=== PATIENT | female | born 1975 | race Hispanic/Latino ===

== ENCOUNTER 2017-10-03 12:09 | Emergency (ER) | payer MEDICAID, OTHER ==
[~2017-10-03 12:09] MED LIST: ACET1TAB12 PO; CIPR-278 PO; GEMF600T3 PO; METF850T2 PO; PRED5TAB PO
[2017-10-03 12:38] LABS: APPEARANCE,URINE Clear (CLEAR); BILIRUBIN,URINE Negative (NEGATIVE); COLOR,URINE Yellow (YELLOW); GLUCOSE, URINE (UA) >=1000 mg/dL (NEGATIVE); KETONES,URINE Negative (NEGATIVE); LEUKOCYTE ESTERASE ,URINE Trace (NEGATIVE); NITRATE,URINE Negative (NEGATIVE); OCCULT BLOOD,URINE Negative (NEGATIVE); PH,URINE 6.5 (5.0-8.0); PROTEIN,URINE Negative (NEGATIVE)
[2017-10-03 12:44] LABS: CREATININE 0.7 mg/dL (0.5-1.5); POTASSIUM 3.7 mmol/L (3.5-5.1)
[2017-10-03 12:48] LABS: AMPHET/METH SCREEN,URINE NEGATIVE (NEGATIVE); BARBITURATE SCREEN, URINE NEGATIVE (NEGATIVE); BASOPHILS % (AUTO) 0.4 % (0.0-5.0); BENZODIAZEPINES SCREEN,URINE NEGATIVE (NEGATIVE); CANNABINOID SCREEN,URINE NEGATIVE (NEGATIVE); COCAINE SCREEN,URINE NEGATIVE (NEGATIVE); EOSINOPHILS % (AUTO) 0.5 % (0.0-8.0); HEMATOCRIT 33.1 % (36-48); LYMPHOCYTES % (AUTO) 21.8 % (21.0-51.0); MEAN CORPUSCULAR HEMOGLOBIN 21.8 pg (27.0-33.0); MEAN CORPUSCULAR HGB CONC 32.1 g/dL (32.0-36.0); MEAN CORPUSCULAR VOLUME 68.1 fL (79-99); MONOCYTES % (AUTO) 5.8 % (3.0-13.0); NEUTROPHILS % (AUTO) 71.5 % (40.0-77.0); NUCLEATED RED BLOOD CELLS 0.1 % (0.0-0.19); OPIATE SCREEN,URINE NEGATIVE (NEGATIVE); PHENCYCLIDINE SCREEN,URINE NEGATIVE (NEGATIVE); PLATELET COUNT (AUTO) 479 K/uL (130-400); RED BLOOD CELL COUNT(AUTO) 4.86 MIL/uL (4.00-5.50); RED CELL DISTRIBUTION WIDTH 18.8 % (11.0-15.5); WHITE BLOOD COUNT (AUTO) 9.7 K/uL (4.8-10.8)
[2017-10-03 12:49] LABS: ALBUMIN 3.5 g/dL (3.5-5.0); BILIRUBIN,TOTAL 0.3 mg/dL (0.2-1.0)
[2017-10-03] MEDS ORDERED: KETOROLAC TROMETHAMINE 30MG/ML ONE (13:17)
[2017-10-03] MEDS ORDERED: INSULIN HUMULIN R 100 UNIT/ML 3ML ONE (13:18)
[2017-10-03 13:23] LABS: BACTERIA,URINE Rare /HPF (None Seen); RBC,URINE None Seen /HPF (0-1); WBC,URINE 0-1 /HPF (0-1)
== END 2017-10-03 15:53 | disposition home or self-care (01) ==
LOC: EDH 12:09
DX: R10.9 Unspecified abdominal pain (principal); E11.9 Type 2 diabetes mellitus without complications; E78.5 Hyperlipidemia, unspecified
CPT/HCPCS: 36415; 74176; 80053; 80305; 81001; 81025; 82948; 85025; 96372 ×2; 99285; J1815; J1885

== ENCOUNTER 2018-06-04 12:58 | Emergency (ER) | payer MEDICAID, OTHER ==
[~2018-06-04 12:58] MED LIST changes: -GEMF600T3 PO; +GEMF600T5 PO; +METF-445 PO; -METF850T2 PO
[2018-06-04 14:08] LABS: BASOPHILS % (AUTO) 0.8 % (0.0-5.0); EOSINOPHILS % (AUTO) 0.6 % (0.0-8.0); HEMATOCRIT 36.2 % (36-48); LYMPHOCYTES % (AUTO) 22.1 % (21.0-51.0); MEAN CORPUSCULAR HEMOGLOBIN 22.1 pg (27.0-33.0); MEAN CORPUSCULAR VOLUME 71.1 fL (79-99); MONOCYTES % (AUTO) 6.5 % (3.0-13.0); NUCLEATED RED BLOOD CELLS 0.1 % (0.0-0.19); PLATELET COUNT (AUTO) 327 K/uL (130-400); RED BLOOD CELL COUNT(AUTO) 5.08 MIL/uL (4.00-5.50); RED CELL DISTRIBUTION WIDTH 18.4 % (11.0-15.5); WHITE BLOOD COUNT (AUTO) 8.3 K/uL (4.8-10.8)
[2018-06-04 14:26] LABS: INR 0.91 (0.85-1.15); PARTIAL THROMBOPLASTIN TIME 26.6 SEC (26.3-35.5); PROTHROMBIN TIME 9.6 SEC (9.6-11.6)
[2018-06-04 14:29] LABS: CREATININE 0.6 mg/dL (0.5-1.5); POTASSIUM 4.1 mmol/L (3.5-5.1)
[2018-06-04 14:34] LABS: ALBUMIN 3.4 g/dL (3.5-5.0); B-TYPE NATRIURETIC PEPTIDE 19 pg/mL (0-100); BILIRUBIN,TOTAL 0.2 mg/dL (0.2-1.0); TOTAL PROTEIN, SERUM 7.1 g/dL (6.0-8.3)
== END 2018-06-04 14:58 | disposition home or self-care (01) ==
LOC: EDH 12:58
DX: R07.89 Other chest pain (principal); M54.2 Cervicalgia; E78.5 Hyperlipidemia, unspecified; E11.9 Type 2 diabetes mellitus without complications; Z90.49 Acquired absence of other specified parts of digestive tract; Z72.0 Tobacco use
CPT/HCPCS: 36415; 71045; 80053; 82550; 83880; 84484; 85025; 85610; 85730; 93005

== ENCOUNTER 2018-12-10 15:06 | Emergency (ER) | payer MEDICAID, OTHER ==
[2018-12-10 15:43] LABS: BASOPHILS % (AUTO) 0.5 % (0.0-5.0); EOSINOPHILS % (AUTO) 0.7 % (0.0-8.0); HEMATOCRIT 36.4 % (36-48); LYMPHOCYTES % (AUTO) 29.8 % (21.0-51.0); MEAN CORPUSCULAR HEMOGLOBIN 23.3 pg (27.0-33.0); MEAN CORPUSCULAR HGB CONC 32.1 g/dL (32.0-36.0); MEAN CORPUSCULAR VOLUME 72.6 fL (79-99); MONOCYTES % (AUTO) 5.7 % (3.0-13.0); NEUTROPHILS % (AUTO) 63.3 % (40.0-77.0); PLATELET COUNT (AUTO) 330 K/uL (130-400); RED BLOOD CELL COUNT(AUTO) 5.02 MIL/uL (4.00-5.50); RED CELL DISTRIBUTION WIDTH 19.5 % (11.0-15.5); WHITE BLOOD COUNT (AUTO) 7.2 K/uL (4.8-10.8)
[2018-12-10 15:52] LABS: CREATININE 0.8 mg/dL (0.5-1.5)
[2018-12-10 15:56] LABS: ALBUMIN 3.4 g/dL (3.5-5.0); BILIRUBIN,TOTAL 0.2 mg/dL (0.2-1.0); TOTAL PROTEIN, SERUM 7.6 g/dL (6.0-8.3)
[2018-12-10 16:33] LABS: APPEARANCE,URINE Clear (CLEAR); BILIRUBIN,URINE Negative (NEGATIVE); COLOR,URINE Yellow (YELLOW); GLUCOSE, URINE (UA) 500 mg/dL (NEGATIVE); KETONES,URINE Negative (NEGATIVE); LEUKOCYTE ESTERASE ,URINE Negative (NEGATIVE); NITRATE,URINE Negative (NEGATIVE); OCCULT BLOOD,URINE Large (NEGATIVE); PROTEIN,URINE Negative (NEGATIVE)
[2018-12-10 16:39] LABS: BACTERIA,URINE Rare /HPF (None Seen); SQUAMOUS EPITHELIAL CELL,UR Few /HPF (0-2); WBC,URINE 0-1 /HPF (0-1)
[2018-12-10 16:40] LABS: AMPHET/METH SCREEN,URINE NEGATIVE (NEGATIVE); BARBITURATE SCREEN, URINE NEGATIVE (NEGATIVE); BENZODIAZEPINES SCREEN,URINE NEGATIVE (NEGATIVE); CANNABINOID SCREEN,URINE NEGATIVE (NEGATIVE); COCAINE SCREEN,URINE NEGATIVE (NEGATIVE); HCG,QUAL RESULT NEGATIVE (NEGATIVE); OPIATE SCREEN,URINE NEGATIVE (NEGATIVE); PHENCYCLIDINE SCREEN,URINE NEGATIVE (NEGATIVE)
[2018-12-10] MEDS ORDERED: ASPIRIN 325 MG TABLET ONE (17:16)
[2018-12-10] MEDS ORDERED: ASPIRIN 81MG TAB.CHEW ONE (17:21)
== END 2018-12-10 18:22 | disposition home or self-care (01) ==
LOC: EDH 15:06
DX: E11.65 Type 2 diabetes mellitus with hyperglycemia (principal); R07.89 Other chest pain; E78.5 Hyperlipidemia, unspecified
CPT/HCPCS: 36415; 71045; 80053; 80305; 81001; 81025; 82550; 83880; 84484; 85025; 93005

== ENCOUNTER 2019-04-08 16:12 | Emergency (ER) | payer OTHER ==
[2019-04-08 16:59] LABS: APPEARANCE,URINE Clear (CLEAR); BILIRUBIN,URINE Negative (NEGATIVE); COLOR,URINE Yellow (YELLOW); GLUCOSE, URINE (UA) 500 mg/dL (NEGATIVE); KETONES,URINE Trace mg/dL (NEGATIVE); LEUKOCYTE ESTERASE ,URINE Negative (NEGATIVE); NITRATE,URINE Negative (NEGATIVE); OCCULT BLOOD,URINE Large (NEGATIVE); PH,URINE 6.5 (5.0-8.0); PROTEIN,URINE Negative (NEGATIVE); UROBILINOGEN,URINE 0.2 mg/dL (0.2-1.0)
[2019-04-08 17:03] LABS: BASOPHILS % (AUTO) 0.9 % (0.0-5.0); EOSINOPHILS % (AUTO) 0.6 % (0.0-8.0); HEMATOCRIT 35.2 % (36-48); LYMPHOCYTES % (AUTO) 26.3 % (21.0-51.0); MEAN CORPUSCULAR HEMOGLOBIN 25.4 pg (27.0-33.0); MONOCYTES % (AUTO) 5.8 % (3.0-13.0); NEUTROPHILS % (AUTO) 66.4 % (40.0-77.0); NUCLEATED RED BLOOD CELLS 0.1 % (0.0-0.19); PLATELET COUNT (AUTO) 369 K/uL (130-400); RED BLOOD CELL COUNT(AUTO) 4.58 MIL/uL (4.00-5.50); RED CELL DISTRIBUTION WIDTH 18.1 % (11.0-15.5); WHITE BLOOD COUNT (AUTO) 8.6 K/uL (4.8-10.8)
[2019-04-08 17:15] LABS: CREATININE 0.8 mg/dL (0.5-1.5); POTASSIUM 3.8 mmol/L (3.5-5.1)
[2019-04-08 17:20] LABS: ALBUMIN 3.2 g/dL (3.5-5.0); BILIRUBIN,TOTAL 0.2 mg/dL (0.2-1.0); TOTAL PROTEIN, SERUM 7.3 g/dL (6.0-8.3)
[2019-04-08 17:33] LABS: BACTERIA,URINE Few /HPF (None Seen); MUCUS,URINE Rare LPF (None Seen); SQUAMOUS EPITHELIAL CELL,UR Few /HPF (0-2); WBC,URINE 0-1 /HPF (0-1)
== END 2019-04-08 18:09 | disposition home or self-care (01) ==
LOC: EDH 16:12
DX: K59.00 Constipation, unspecified (principal); E11.9 Type 2 diabetes mellitus without complications; E78.5 Hyperlipidemia, unspecified; Z98.890 Other specified postprocedural states
CPT/HCPCS: 36415; 74176; 80053; 81001; 83690; 85025

== ENCOUNTER 2020-09-19 20:16 | Emergency (ER) | payer OTHER ==
[~2020-09-19 20:16] MED LIST changes: -GEMF600T5 PO; +GEMF600T89 PO
[2020-09-19 20:36] LABS: APPEARANCE,URINE Clear (CLEAR); BILIRUBIN,URINE Negative (NEGATIVE); COLOR,URINE Yellow (YELLOW); GLUCOSE, URINE (UA) >=1000 mg/dL (NEGATIVE); KETONES,URINE Trace mg/dL (NEGATIVE); LEUKOCYTE ESTERASE ,URINE Negative (NEGATIVE); NITRATE,URINE Negative (NEGATIVE); OCCULT BLOOD,URINE Negative (NEGATIVE); PH,URINE 6.5 (5.0-8.0); PROTEIN,URINE Negative (NEGATIVE); UROBILINOGEN,URINE 0.2 mg/dL (0.2-1.0)
[2020-09-19 20:44] LABS: AMPHET/METH SCREEN,URINE NEGATIVE (NEGATIVE); BARBITURATE SCREEN, URINE NEGATIVE (NEGATIVE); BENZODIAZEPINES SCREEN,URINE NEGATIVE (NEGATIVE); CANNABINOID SCREEN,URINE NEGATIVE (NEGATIVE); COCAINE SCREEN,URINE NEGATIVE (NEGATIVE); OPIATE SCREEN,URINE NEGATIVE (NEGATIVE); PHENCYCLIDINE SCREEN,URINE NEGATIVE (NEGATIVE)
[2020-09-19 20:45] LABS: BASOPHILS % (AUTO) 0.5 % (0.0-5.0); EOSINOPHILS % (AUTO) 0.6 % (0.0-8.0); HEMATOCRIT 35.6 % (36-48); LYMPHOCYTES % (AUTO) 21.7 % (21.0-51.0); MEAN CORPUSCULAR HEMOGLOBIN 24.6 pg (27.0-33.0); MEAN CORPUSCULAR HGB CONC 31.5 g/dL (32.0-36.0); MEAN CORPUSCULAR VOLUME 78.2 fL (79-99); MONOCYTES % (AUTO) 6.2 % (3.0-13.0); NEUTROPHILS % (AUTO) 69.9 % (40.0-77.0); PLATELET COUNT (AUTO) 357 K/uL (130-400); RED BLOOD CELL COUNT(AUTO) 4.55 MIL/uL (4.00-5.50); RED CELL DISTRIBUTION WIDTH 16.2 % (11.0-15.5); WHITE BLOOD COUNT (AUTO) 12.1 K/uL (4.8-10.8)
[2020-09-19 21:07] LABS: CREATININE 0.8 mg/dL (0.5-1.5); POTASSIUM 3.8 mmol/L (3.5-5.1)
[2020-09-19 21:11] LABS: BACTERIA,URINE None Seen /HPF (None Seen); MUCUS,URINE Few LPF (None Seen); RBC,URINE 0-1 /HPF (0-1); SQUAMOUS EPITHELIAL CELL,UR 0-2 /HPF (0-2); WBC,URINE 0-1 /HPF (0-1)
[2020-09-19 21:12] LABS: ALBUMIN 3.1 g/dL (3.5-5.0); BILIRUBIN,TOTAL 0.2 mg/dL (0.2-1.0); TOTAL PROTEIN, SERUM 7.3 g/dL (6.0-8.3)
[2020-09-19] MEDS ORDERED: ONDANSETRON HCL 4 MG/2 ML VIAL ONE (22:58)
[2020-09-19] MEDS ORDERED: MORPHINE SULFATE 4 MG/1ML SYG ONE (22:58)
[2020-09-20] MEDS ORDERED: MAGNESIUM CITRATE 296 ML SOLUTION ONE (00:29)
== END 2020-09-20 00:37 | disposition home or self-care (01) ==
LOC: EDH 20:16
DX: K59.00 Constipation, unspecified (principal); E11.9 Type 2 diabetes mellitus without complications; E78.5 Hyperlipidemia, unspecified; Z98.890 Other specified postprocedural states; Z90.49 Acquired absence of other specified parts of digestive tract
CPT/HCPCS: 36415; 74176; 80053; 80305; 81001; 81025; 85025; 96374; 96375; 99284; J2270; J2405

== ENCOUNTER 2020-11-09 12:20 | Emergency (ER) | payer MEDICAID, OTHER ==
[~2020-11-09] VITALS: Ht 157.5 cm; Wt 103.9 kg
[2020-11-09 12:24] VITALS: BP 144/73
[2020-11-09 12:41] LABS: BASOPHILS % (AUTO) 0.3 % (0.0-5.0); EOSINOPHILS % (AUTO) 0.2 % (0.0-8.0); HEMATOCRIT 38.5 % (36-48); LYMPHOCYTES % (AUTO) 20.1 % (21.0-51.0); MEAN CORPUSCULAR HEMOGLOBIN 23.7 pg (27.0-33.0); MEAN CORPUSCULAR HGB CONC 30.9 g/dL (32.0-36.0); MEAN CORPUSCULAR VOLUME 76.7 fL (79-99); MONOCYTES % (AUTO) 6.7 % (3.0-13.0); PLATELET COUNT (AUTO) 398 K/uL (130-400); RED BLOOD CELL COUNT(AUTO) 5.02 MIL/uL (4.00-5.50); RED CELL DISTRIBUTION WIDTH 15.8 % (11.0-15.5); WHITE BLOOD COUNT (AUTO) 12.1 K/uL (4.8-10.8)
[2020-11-09 12:47] VITALS: BP 119/68
[2020-11-09] MEDS ORDERED: ACETAMINOPHEN 325 MG TAB PO ONE (13:00)
[2020-11-09] MEDS ORDERED: KETOROLAC 30MG VIAL (30MG/ML) IVP ONE (13:00)
[2020-11-09] MEDS ORDERED: 0.9%NACL 1000ML 1,000 ML IV ONE ×2 (13:00→14:45)
[2020-11-09] MEDS ORDERED: ONDANSETRON 4MG INJ IVP ONE (13:00)
[2020-11-09] MEDS ORDERED: LEVOFLOXACIN 500 MG/D5W 100 ML IV ONE (13:00)
[2020-11-09] MEDS ORDERED: MORPHINE 2 MG SYG IVP ONE (13:00)
[2020-11-09 13:21] LABS: APPEARANCE,URINE Clear (CLEAR); BILIRUBIN,URINE Negative (NEGATIVE); COLOR,URINE Yellow (YELLOW); GLUCOSE, URINE (UA) >=1000 mg/dL (NEGATIVE); KETONES,URINE Negative (NEGATIVE); LEUKOCYTE ESTERASE ,URINE Negative (NEGATIVE); NITRATE,URINE Negative (NEGATIVE); OCCULT BLOOD,URINE Negative (NEGATIVE); PH,URINE 5.5 (5.0-8.0); PROTEIN,URINE Negative (NEGATIVE); UROBILINOGEN,URINE 0.2 mg/dL (0.2-1.0)
[2020-11-09 13:22] LABS: HCG,QUAL RESULT NEGATIVE (NEGATIVE)
[2020-11-09 13:28] LABS: BACTERIA,URINE Rare /HPF (None Seen); RBC,URINE 0-1 /HPF (0-1); SQUAMOUS EPITHELIAL CELL,UR Rare /HPF (0-2); WBC,URINE 0-1 /HPF (0-1)
[2020-11-09 13:52] LABS: BILIRUBIN,TOTAL 0.3 mg/dL (0.2-1.0); CREATININE 0.8 mg/dL (0.5-1.5)
[2020-11-09 13:53] LABS: ALBUMIN 3.2 g/dL (3.5-5.0); TOTAL PROTEIN, SERUM 7.2 g/dL (6.0-8.3)
[2020-11-09] MEDS ORDERED: INSULIN HUMULIN R 100 UNIT/ML 3ML SQ SCH (14:45)
[2020-11-09] MEDS ORDERED: IOHEXOL-350 75 ML VIAL IV ONE (15:23)
[2020-11-09] MEDS ORDERED: HYDROCODONE/ACETAMINOPHEN 5/325 MG TAB PO ONE (16:45)
[2020-11-09] MEDS ORDERED: ACET1TAB25 PO (16:52)
[2020-11-09] MEDS ORDERED: LEVO750T46 PO (16:52)
[2020-11-09] MEDS ORDERED: CORTSOL OT (16:52)
[2020-11-09 17:39] VITALS: BP 108/71
== END 2020-11-09 17:43 | disposition home or self-care (01) ==
LOC: EDH 12:20
DX: H60.91 Unspecified otitis externa, right ear (principal); E07.9 Disorder of thyroid, unspecified; R11.2 Nausea with vomiting, unspecified; E11.9 Type 2 diabetes mellitus without complications; I10 Essential (primary) hypertension; E78.5 Hyperlipidemia, unspecified; E66.9 Obesity, unspecified; Z79.4 Long term (current) use of insulin; Z79.899 Other long term (current) drug therapy; Z79.1 Long term (current) use of non-steroidal anti-inflammatories (NSAID); Z79.52 Long term (current) use of systemic steroids
CPT/HCPCS: 36415; 70480; 70491; 80053; 81001; 81025; 82947; 82948; 83605; 84484; 85025; 87040 ×2; 87088; 93005; 96365; 96372; 96375; 99285; J1815; J1885; J1956; J2405; J3490; J7030; Q9967

== ENCOUNTER 2020-11-12 16:31 | Emergency (ER) | payer OTHER ==
[~2020-11-12] VITALS: Ht 157.5 cm; Wt 99.8 kg
[~2020-11-12 16:31] MED LIST changes: +ACET1TAB25 PO; +CORTSOL OT; +LEVO750T46 PO
[2020-11-12 16:33] VITALS: BP 115/63
[2020-11-12] MEDS ORDERED: LIDOCAINE HCL-MPF 1% 2ML VIAL ONE (17:57)
[2020-11-12] MEDS ORDERED: CEFTRIAXONE 1G VIAL ONE (17:57)
[2020-11-12] MEDS ORDERED: KETOROLAC 30MG VIAL (30MG/ML) ONE (17:57)
[2020-11-12] MEDS ORDERED: HYDROCODONE/ACETAMINOPHEN 5/325 MG TAB ONE (17:58)
[2020-11-12] MEDS ORDERED: KETOROLAC 30MG VIAL (30MG/ML) IM ONE (18:00)
[2020-11-12] MEDS ORDERED: CEFTRIAXONE 1G VIAL IM SCH (18:00)
[2020-11-12] MEDS ORDERED: HYDROCODONE/ACETAMINOPHEN 5/325 MG TAB PO ONE (18:00)
[2020-11-12] MEDS ORDERED: LEVO750T46 PO (18:55)
[2020-11-12] MEDS ORDERED: ACET1TAB25 PO (18:55)
[2020-11-12 19:08] VITALS: BP 116/72
== END 2020-11-12 19:09 | disposition home or self-care (01) ==
LOC: EDH 16:31
DX: H66.91 Otitis media, unspecified, right ear (principal); E11.9 Type 2 diabetes mellitus without complications; E78.00 Pure hypercholesterolemia, unspecified; Z79.84 Long term (current) use of oral hypoglycemic drugs; Z79.52 Long term (current) use of systemic steroids; Z90.49 Acquired absence of other specified parts of digestive tract; Z79.1 Long term (current) use of non-steroidal anti-inflammatories (NSAID)
CPT/HCPCS: 96372 ×2; 99284; J0696; J1885; J3490

== ENCOUNTER 2020-12-02 17:48 | Emergency (ER) | payer OTHER ==
[~2020-12-02] VITALS: Ht 157.5 cm; Wt 99.8 kg
[2020-12-02 17:54] VITALS: BP 132/69
[2020-12-02] MEDS ORDERED: AMOX/CLAV 875/125MG TAB PO ONE (19:00)
[2020-12-02] MEDS ORDERED: KETOROLAC 60 MG VIAL (30MG/ML) IM ONE (19:00)
[2020-12-02] MEDS ORDERED: FLUT16H NASAL (19:11)
[2020-12-02] MEDS ORDERED: PSEU-225 PO (19:11)
[2020-12-02] MEDS ORDERED: AMOX-429 PO (19:11)
[2020-12-02] MEDS ORDERED: IBUP-2070 PO (19:11)
[2020-12-02 19:15] VITALS: BP 142/76
== END 2020-12-02 19:42 | disposition home or self-care (01) ==
LOC: EDH 17:48
DX: H70.001 Acute mastoiditis without complications, right ear (principal); H66.91 Otitis media, unspecified, right ear; J01.90 Acute sinusitis, unspecified; E78.00 Pure hypercholesterolemia, unspecified; E11.9 Type 2 diabetes mellitus without complications; Z79.52 Long term (current) use of systemic steroids; Z79.1 Long term (current) use of non-steroidal anti-inflammatories (NSAID); Z79.84 Long term (current) use of oral hypoglycemic drugs

== ENCOUNTER 2020-12-10 17:52 | Emergency (ER) | payer OTHER ==
[~2020-12-10] VITALS: Ht 157.5 cm; Wt 99.8 kg
[~2020-12-10 17:52] MED LIST changes: +AMOX-429 PO; +FLUT16H NASAL; +IBUP-2070 PO; +PSEU-225 PO
[2020-12-10 17:53] VITALS: BP 113/81
[2020-12-10] MEDS ORDERED: CORTSOL AS (20:30)
[2020-12-10] MEDS ORDERED: LEVO750T46 PO (20:30)
== END 2020-12-10 20:41 | disposition home or self-care (01) ==
LOC: EDH 17:52
DX: H66.93 Otitis media, unspecified, bilateral (principal); H60.93 Unspecified otitis externa, bilateral; R42 Dizziness and giddiness; R51.9 Headache, unspecified; J02.9 Acute pharyngitis, unspecified; E11.9 Type 2 diabetes mellitus without complications; E78.00 Pure hypercholesterolemia, unspecified; J45.909 Unspecified asthma, uncomplicated; D64.9 Anemia, unspecified; Z98.890 Other specified postprocedural states; Z90.49 Acquired absence of other specified parts of digestive tract; Z79.84 Long term (current) use of oral hypoglycemic drugs; Z79.899 Other long term (current) drug therapy

== ENCOUNTER 2024-08-06 13:10 | Emergency (ER) | payer SELFPAY ==
[~2024-08-06] VITALS: Ht 157.5 cm; Wt 92.5 kg
[~2024-08-06 13:10] MED LIST changes: +ACET-2079 PO; -ACET1TAB25 PO; +CORTSOL AS; +LEVO750T40 PO; -LEVO750T46 PO; +LEVO750T68 PO
--- NOTE | 2024-08-06 13:31 | EKG ---
[facility] Test Date: 2024-08-06 Test Time: 13:24:36 Pat Name: INEZ NIEVES Department: [facility] Room: Gender: F Manager Medicare: [id number] : 1975 Requested By: ELIU SIMPSON Order Number: [id number] Reading MD: Jeremiah Martinez Measurements Intervals Halma Rate: 94 P: 31 CA: 138 QRS: 32 QRSD: 93 T: 40 QT: 369 QTc: 461 Interpretive Statements Sinus rhythm Compared to ECG 11/09/2020 13:30:26 No significant changes Electronically Signed On 08-07-2024 13:32:58 CDT by Jeremiah Martinez Please click the below link to view image of tracing.
--- NOTE | 2024-08-06 13:53 | ERN ---
General Chief Complaint: Chest Pain Stated Complaint: CHEST PAIN Time Seen by MD: 13:15 Source: patient History of Present Illness Initial Comments THIS IS A 49-YEAR-OLD FEMALE COMING IN TO BE EVALUATED FOR CHEST DISCOMFORT. PATIENT STATES THAT SHE HAS BEEN HAVING BODY ACHES AND LEFT-SIDED CHEST DISCOMFORT FOR TWO DAYS. NO FEVER NO CHILLS NO NAUSEA NO VOMITING. PATIENT IS A DIABETIC. Allergies: Coded Allergies: No Known Drug Allergies (Verified Allergy, Severe, 01/14/15) Home Meds Active Scripts Levofloxacin (Levofloxacin) 750 Mg Tablet, 750 MG PO DAILY for 10 Days, #10 TAB 0 Refills Prov:HANANE PALENCIA MD 12/10/20 Neomy Sulf/Polymyx B Sulf/Hc (Cortisporin Otic Soln) 20 Drop/Ml Otsol, 4 DROP QID for 10 Days, #1 BOTTLE 0 Refills Prov:HANANE PALENCIA MD 12/10/20 Ibuprofen (Ibuprofen) 600 Mg Tablet, 600 MG PO Q6H PRN for PAIN, #30 TAB Prov:CHAY CORTEZ MD 12/02/20 Pseudoephedrine HCl (Pseudoephedrine HCl) 60 Mg Tablet, 60 MG PO BID PRN for CONTRACTIONS, #20 TAB Prov:CHAY CORTEZ MD 12/02/20 Fluticasone Propionate (Flonase Nasal [place]) 50 Mcg/Nazareth [place], 50 MCG NASAL BID, #1 SPRAY Prov:CHAY COTREZ MD 12/02/20 Amoxicillin/Potassium Clav (Augmentin 875-125 Tablet) 1 Each Tablet, 1 EACH PO BIDMEALS, #30 TAB Prov:CHAY CORTEZ MD 12/02/20 Acetaminophen with Codeine (Acetaminophen-Cod #3 Tablet) 1 Each Tablet, 1 EACH PO TID for OM for 5 Days, #10 TAB Prov:THELMA PAREDES DIRECTOR OF CORPORATE RESPONSIBILITY 11/12/20 Levofloxacin (Levaquin 750Mg Tabs) 750 Mg Tablet, 750 MG PO DAILY for OM for 5 Days, #5 TAB Prov:THELMA PAREDES DIRECTOR OF [employer]ATE RESPONSIBILITY 11/12/20 Acetaminophen with Codeine (Acetaminophen-Cod #3 Tablet) 1 Each Tablet, 1 EACH PO BID for 5 Days, #10 TAB Prov:JAMISON LAWRENCE 6/21/21 Neomycin/Polymyxin B Sulf/Hc (Vjyxnqey-Pqijcozjb-Ky Ear Soln) 10 Ml Solution, 4 DROP OT TID for 10 Days, #3.5 ML Prov:JAMISON LAWRENCE 11/09/20 Levofloxacin (Levaquin 750Mg Tabs) 750 Mg Tablet, 500 MG PO DAILY for 10 Days, #10 TAB Prov:JAMISON LAWRENCE 11/09/20 Acetaminophen with Codeine (Tylenol with Codeine #3 Tablet) 1 Each Tablet, 1-2 TAB PO Q6H PRN for PAIN, #20 TAB Prov:LOGAN ASHRAF MD 01/15/15 Ciprofloxacin HCl (Cipro) 500 Mg Tablet, 500 MG PO BID, #20 TAB Prov:LOGAN ASHRAF MD 01/15/15 Reported Medications Gemfibrozil (Gemfibrozil) 600 Mg Tablet, 600 MG PO BID, TAB 08/25/16 Metformin HCl (Metformin HCl) 850 Mg Tablet, 850 MG PO BID, TAB 08/25/16 Prednisone (Prednisone) 5 Mg Tablet, 5 MG PO TID, TAB 08/25/16 Past Medical History Past Medical History: Anemia, Diabetes-Type II, High Cholesterol, Liver Disease Medical History Other: THYROID PROBLEMS Past Surgical History: Cholecystectomy, Surgical History Other: ECTOPIC SURGERY Social History Social History: Negative ROS Dictation CONSTITUTIONAL: NO CHILLS, NO FEVER, NO WEAKNESS, NO DIAPHORESIS, NO MALAISE. HEAD/FACE: NO SIGNS OF TRAUMA. EENT: NO EYE PAIN, NO BLURRED VISION, NO TEARING, NO DOUBLE VISION, NO EAR P AIN, NO EAR DISCHARGE, NO NOSE PAIN, NO NASAL CONGESTION, NO THROAT PAIN, NO THROAT SWELLING, NO MOUTH PAIN. RESPIRATORY: NO COUGH, NO ORTHOPNEA, NO SOB, NO STRIDOR, NO WHEEZING. CARDIOVASCULAR: NO CHEST PAIN, NO EDEMA, NO PALPITATIONS, NO SYNCOPE. GASTROINTESTINAL/ABDOMINAL: NO ABDOMINAL PAIN, NO CONSTIPATION, NO DIARRHEA, NO NAUSEA, NO VOMITING. GENITOURINARY: NO ABNORMAL DISCHARGE, NO DYSURIA, NO FREQUENT URINATION, NO HEMATURIA. NO COMPLAINTS OF PAIN IN THE GENITALS. MUSCULOSKELETAL: NO BACK PAIN, NO GOUT, NO JOINT PAIN, NO JOINT SWELLING, NO MUSCLE PAIN, NO MUSCLE STIFFNESS, NO NECK PAIN. INTEGUMENTARY: NO CHANGE IN COLOR, NO CHANGE IN HAIR/NAILS, NO DRYNESS, NO LESION, NO LUMPS, NO RASH. NEUROLOGICAL/PSYCH: NO ANXIETY, NOT DEPRESSED, NO EMOTIONAL PROBLEM, NO HEADACHE, NO NUMBNESS, NO PRE-EXISTING DEFICIT, NO HISTORY OF SEIZURES, NO TREMORS, NO WEAKNESS. HEMATOLOGIC/LYMPHATIC: NOT ANEMIC, NO HISTORY OF BLOOD CLOTS, NO APPARENT BLEEDING, NO BRUISING, GLANDS NOT SWOLLEN. ALL SYSTEMS NEGATIVE, EXCEPT NOTED. Physical Exam Physical Exam Dictation VITAL SIGNS: REVIEWED. GENERAL APPEARANCE: ALERT, ORIENTED X3, NO ACUTE DISTRESS, OBESE. HEAD AND FACE: NON-TRAUMATIC. EYES: PERRL, PINK CONJUNCTIVAS, EYELID NO TRAUMA, ANTERIOR CHAMBER CLEAR. EARS: PINNAS INTACT AND NO SIGNS OF TRAUMA OR ERYTHEMA. EAR CANALS CLEAR AND NO DISCHARGE. TMS NO ERYTHEMA. NOSE: NO DISCHARGE, NO BLEEDING. OROPHARYNX: MOUTH NORMAL, TEETH NO CARIES, TONGUE PINK. PHARYNX CLEAR, NO ERYTHEMA. TONSILS NO EXUDATES, NO ABSCESSES NOTED. MUCOUS MEMBRANE MOIST. NECK: SUPPLE, NON-TENDER, NO THYROMEGALY, NO MASSES, NO JVD, NO BRUITS. BREAST: DEFERRED. CHEST: NO TENDERNESS, NO CREPITUS, NO PARADOXICAL MOVEMENT, NO RETRACTIONS. LUNGS: CLEAR, WELL-VENTILATED, SYMMETRIC, NO RALES, NO WHEEZING, NO RHONCHI, NO STRIDOR, GOOD BREATH SOUNDS BILATERALLY. HEART: REGULAR RATE, REGULAR RHYTHM, NO MURMUR, NO GALLOPS. VASCULAR: NO PERIPHERAL EDEMA. ABDOMEN: SOFT, POSITIVE BOWEL SOUNDS, NONDISTENDED, NO GUARDING, NONTENDER, NO REBOUND, NO MASSES NO HEPATOMEGALY, NO SPLENOMEGALY, NO HERNANDEZ'S SIGN, NO HERNIAS. RECTAL: DEFERRED. GENITAL: DEFERRED. NEUROLOGICAL: NORMAL SPEECH, GROSS MOTOR FUNCTION INTACT, GROSS SENSORY FUNCTION INTACT. MUSCULOSKELETAL: NECK NONTENDER, FULL RANGE OF MOTION, BACK NONTENDER, FULL RANGE OF MOTION. EXTREMITIES: NONTENDER, FULL RANGE OF MOTION. SKIN: COLOR PINK, DRY, NO TURGOR, NO RASH, NO LACERATIONS, NO ABRASIONS, NO CONTUSIONS. LYMPHATICS: DEFERRED. Results Laboratory and Microbiology Lab and Micro Result Laboratory Tests Test 08/06/24 15:15 08/06/24 18:00 White Blood Count 8.5 K/uL (4.8-10.8) Red Blood Count 4.82 MIL/uL (4.00-5.50) Hemoglobin 13.7 g/dL (12.0-16.0) Hematocrit 40.9 % (36-48) Mean Corpuscular Volume 84.9 fL (79-99) Mean Corpuscular Hemoglobin 28.4 pg (27.0-33.0) Mean Corpuscular Hemoglobin Concent 33.5 g/dL (32.0-36.0) Red Cell Distribution Width 13.3 % (11.0-15.5) Platelet Count 285 K/uL (130-400) Mean Platelet Volume 10.0 fL (7.5-10.5) Immature Granulocyte % (Auto) 0.6 % (0-1) Neutrophils (%) (Auto) 65.7 % (40.0-77.0) Lymphocytes (%) (Auto) 26.4 % (21.0-51.0) Monocytes (%) (Auto) 5.9 % (3.0-13.0) Eosinophils (%) (Auto) 0.9 % (0.0-8.0) Basophils (%) (Auto) 0.5 % (0.0-5.0) Neutrophils # (Auto) 5.6 K/uL (1.8-7.7) Lymphocytes # (Auto) 2.2 K/uL (1.0-4.8) Monocytes # (Auto) 0.5 K/uL (0.1-1.0) Eosinophils # (Auto) 0.08 K/uL (0.00-0.70) Basophils # (Auto) 0.04 K/uL (0.00-0.20) Absolute Immature Granulocyte (auto 0.05 K/uL (0-1) Nucleated Red Blood Cells 0.0 % (0.0-0.19) Prothrombin Time 9.9 SEC (9.6-11.6) Prothromb Time International Ratio <= 0.93 (0.85-1.15) Activated Partial Thromboplast Time 26.2 SEC (26.3-35.5) L Sodium Level 131 mmol/L (136-145) L Potassium Level 4.0 mmol/L (3.5-5.1) Chloride Level 96 mmol/L (101-111) L Carbon Dioxide Level 31 mmol/L (21-32) Blood Urea Nitrogen 12 mg/dL (7-18) Creatinine 0.7 mg/dL (0.5-1.0) Glomerular Filtration Rate Calc 107 mL/min (>90) Random Glucose 297 mg/dL (70-105) H Total Calcium 9.3 mg/dL (8.5-10.1) Magnesium Level 1.80 mg/dL (1.80-2.40) Total Creatine Kinase 58 U/L (21-232) Troponin I High Sensitivity < 4.0 ng/L (4-50) L < 4 ng/L (4-50) L B-Type Natriuretic Peptide < 5 pg/mL (0-100) Influenza Type A Antigen Negative For Type A Influenza Type B Antigen Negative For Type B SARS-CoV-2, RNA, NAAT NEGATIVE SARS CoV-2 Group A Streptococcus Rapid negative (NEGATIVE) Labs Reviewed?: Yes EKG/XRAY/US/CT/MRI EKG Comment 08/06/2024 time 1:24 p.m. Ventricular rate 94 Sinus rhythm [place] [address] wave elevation or [place] [address] IMAGING REPORT Signed PATIENT: INEZ SANCHEZ MR#: [id number] : 1975 SEX: F AGE: 49 LOCATION: [facility] ORDER [id number] STATUS: REG REPORT#: [id number] SERVICE [id number] REASON: CP ORDERING PHYSICIAN: ELIU SIMPSON MD PROCEDURE: CXR1VW - CHEST 1VW Exam Type: CHEST 1VW Clinical Information: CP Comparison: None Findings: The lungs are clear of infiltrates. The heart is normal in size. The bony and soft tissue structures of the chest are unremarkable. Impression: Clear lungs. DICTATED BY: LAST FRANK MD DATE: 08/06/241442 ELECTRONICALLY SIGNED BY: LAST FRANK MD DATE: 08/06/241444 [facility] MDM: Differential diagnosis: Chest pain, muscle strain, anxiety, Patient is a 49-year-old female coming in to be about it left-sided chest pain as well as headache and muscle strain. Per patient these symptoms has been ongoing for a couple of days she was worried she decided come in to check her heart. Cardiac workup negative for acute findings. Patient states that her symptoms have completely resolved and states that the pain is more in the shoulder. She states that the pain started shortly after waking up. Patient will be discharged with a diagnosis of shoulder strain. ED Course Orders Procedure Category Date Status Time Cbc With Differential LAB 08/06/24 Complete 13:19 Prothrombin Time With LAB 08/06/24 Complete INR 13:19 B-Type Natriuretic LAB 08/06/24 Complete Peptide 13:19 Chest 1vw RAD 08/06/24 Resulted 13:19 12 Lead Ekg Tracing- EKG 08/06/24 Complete Technical 13:19 Magnesium LAB 08/06/24 Complete 13:19 Urinalysis Profile LAB 08/06/24 Logged 13:19 Partial LAB 08/06/24 Complete Thromboplastin Time 13:19 Basic Metabolic Panel LAB 08/06/24 Complete 13:19 Influenza Type A & B, LAB 08/06/24 Complete Rapid 13:19 Covid Rna Naat LAB 08/06/24 Complete 13:19 Rapid (Group A Strep) LAB 08/06/24 Complete 13:19 Cardiac Panel LAB 08/06/24 Complete 13:19 Troponin I High LAB 08/06/24 Complete Sensitivity 17:39 Vital Signs Date Time Temp Pulse Resp B/P (MAP) Pulse Ox O2 Delivery O2 Flow Rate FiO2 08/06/24 13:16 98.8 96 18 128/82 96 Room Air DX & DISP Disposition: Discharge Departure Impression: Primary Impression: Left shoulder strain Condition: Stable Additional Instructions: You have been reviewed in the emergency department at [facility] after presenting with chest pain. After considering your history, your risk f actors, your EKG and your blood test troponins, have been found to be at very low risk less than (1 in 100) of having a major adverse cardiac event (like heart attack) in the near future. In the " low risk" group, the risks of doing further tests and treatment as the inpatient outweighs the benefits. In many patients in the low risk group for the test of any sort or unnecessary, however he should discuss this further with his general practitioner who will understand the medical and personal backgrounds better. Because we have never declared you" no risk" we would suggest. 1 returning for medical review if you have further episodes of chest pain/arm pain or other concerning symptoms like dizziness, collapse, palpitations or shortness of breath. 2. Following up with your local doctor who will consider the need for further testing and will also ensure that any modifiable risk factors you may have for heart disease are optimally managed. Patient will be discharged in stable condition at the moment discharge patient states , no chest pain Referrals: VANESA PADILLA MD (PCP) Time of Disposition: 18:55 ELIU SIMPSON MD Aug 06, 2024 13:53
--- NOTE | 2024-08-06 14:45 | HMCIMG ---
Exam Type: CHEST 1VW Clinical Information: CP Comparison: None Findings: The lungs are clear of infiltrates. The heart is normal in size. The bony and soft tissue structures of the chest are unremarkable. Impression: Clear lungs.
[2024-08-06 15:37] LABS: BASOPHILS # (AUTO) 0.04 K/uL (0.00-0.20); BASOPHILS % (AUTO) 0.5 % (0.0-5.0); EOSINOPHILS # (AUTO) 0.08 K/uL (0.00-0.70); EOSINOPHILS % (AUTO) 0.9 % (0.0-8.0); HEMATOCRIT 40.9 % (36-48); IMMATURE GRANULOCYTE ABSOLUTE 0.05 K/uL (0-1); LYMPHOCYTES # (AUTO) 2.2 K/uL (1.0-4.8); LYMPHOCYTES % (AUTO) 26.4 % (21.0-51.0); MEAN CORPUSCULAR HEMOGLOBIN 28.4 pg (27.0-33.0); MEAN CORPUSCULAR HGB CONC 33.5 g/dL (32.0-36.0); MEAN CORPUSCULAR VOLUME 84.9 fL (79-99); MONOCYTES # (AUTO) 0.5 K/uL (0.1-1.0); MONOCYTES % (AUTO) 5.9 % (3.0-13.0); NEUTROPHILS # (AUTO) 5.6 K/uL (1.8-7.7); NEUTROPHILS % (AUTO) 65.7 % (40.0-77.0); PLATELET COUNT (AUTO) 285 K/uL (130-400); RED BLOOD CELL COUNT(AUTO) 4.82 MIL/uL (4.00-5.50); RED CELL DISTRIBUTION WIDTH 13.3 % (11.0-15.5); WHITE BLOOD COUNT (AUTO) 8.5 K/uL (4.8-10.8)
[2024-08-06 15:54] LABS: CARBON DIOXIDE 31 mmol/L (21-32); CHLORIDE 96 mmol/L (101-111); CREATININE 0.7 mg/dL (0.5-1.0); GLOMERULAR FILTR. RATE CALC 107 mL/min (>90); GLUCOSE,RANDOM 297 mg/dL (70-105); SODIUM SERUM 131 mmol/L (136-145); UREA NITROGEN, BLOOD 12 mg/dL (7-18)
[2024-08-06 16:01] LABS: CREATINE KINASE, TOTAL 58 U/L (21-232)
[2024-08-06 16:09] LABS: B-TYPE NATRIURETIC PEPTIDE < 5 pg/mL (0-100)
[2024-08-06 16:10] LABS: INR <= 0.93 (0.85-1.15); PROTHROMBIN TIME 9.9 SEC (9.6-11.6)
[2024-08-06 16:11] LABS: PARTIAL THROMBOPLASTIN TIME 26.2 SEC (26.3-35.5)
--- NOTE | 2024-08-06 17:40 | NUR ---
ASSUMED PATIENTS CARE.
--- NOTE | 2024-08-06 18:00 | NUR ---
PLACED A 20G ON RIGHT HAND. TOOK BLOOD SAMPLES FOR LAB AND DID NOSE SWABS FOR COVID, FLU A AND B.
[2024-08-06 18:40] LABS: RAPID GROUP A STREP negative (NEGATIVE)
[2024-08-06 18:49] LABS: INFLUENZA TYPE A Negative For Type A (NEGATIVE); INFLUENZA TYPE B Negative For Type B (NEGATIVE)
[2024-08-06 18:51] LABS: SARS-CoV-2, RNA, NAAT NEGATIVE SARS CoV-2 (NEGATIVE)
[2024-08-06 19:16] VITALS: BP 124/64; PULSE 86; RESP 18; TEMP 98.4; O2SAT 98
== END 2024-08-06 19:26 | disposition home or self-care (01) ==
LOC: EDH 13:10
DX: S46.812A Strain of other muscles, fascia and tendons at shoulder and upper arm level, left arm, initial encounter (principal); R07.89 Other chest pain; E11.9 Type 2 diabetes mellitus without complications; E78.00 Pure hypercholesterolemia, unspecified; Z20.822 Contact with and (suspected) exposure to COVID-19; Z79.52 Long term (current) use of systemic steroids; Z79.84 Long term (current) use of oral hypoglycemic drugs; Z90.49 Acquired absence of other specified parts of digestive tract; Z98.890 Other specified postprocedural states; X58.XXXA Exposure to other specified factors, initial encounter; Y93.89 Activity, other specified; Y92.89 Other specified places as the place of occurrence of the external cause; Y99.8 Other external cause status
CPT/HCPCS: 36415; 71045; 80048; 82550; 83735; 83880; 84484; 85025; 85610; 85730; 87635; 87804; 87880; 93005; 99285